=== PATIENT | female | born 1970 | race Two or more races ===

== ENCOUNTER 2023-01-07 21:13 | Inpatient (IN) | payer MEDICARE, OTHER ==
[~2023-01-07] VITALS: Ht 160 cm; Wt 54.4 kg
[2023-01-07 21:30] VITALS: BP 148/96; TEMP 98.7; O2SAT 95
[2023-01-07] MEDS ORDERED: MAGNESIUM HYDROXIDE 30 ML UDC PO PRN (22:00)
[2023-01-07] MEDS ORDERED: BLOOD SUGAR DIAGNOSTIC 1 EACH STRIP IN ONE (22:00)
[2023-01-07] MEDS ORDERED: ZOLPIDEM TARTRATE 5 MG TABLET PO PRN (22:00)
[2023-01-07] MEDS ORDERED: MAG HYDROX/AL HYDROX/SIMETH 30 ML UDC PO PRN (22:00)
[2023-01-07] MEDS ORDERED: ACETAMINOPHEN 325 MG TABLET PO PRN (22:00)
[2023-01-08] MEDS ORDERED: VENL150C2 PO (02:17)
[2023-01-08] MEDS ORDERED: ARIP10TA9 PO (02:17)
[2023-01-08] MEDS ORDERED: LISI10TA29 PO (02:17)
[2023-01-08] MEDS ORDERED: TRAZ-257 PO (02:17)
[2023-01-08] MEDS ORDERED: VENL50TA4 PO (07:54)
[2023-01-08] MEDS ORDERED: ARIP5TAB10 PO (07:54)
[2023-01-08 07:59] LABS: ALBUMIN 2.7 g/dL (3.4-5.0); BILIRUBIN,TOTAL 0.2 mg/dL (0.2-1.0); CALCIUM, SERUM 8.6 mg/dL (8.5-10.1); CREATININE 0.7 mg/dL (0.6-1.3); POTASSIUM 4.2 mmol/L (3.5-5.1); TOTAL PROTEIN, SERUM 6.7 g/dL (6.4-8.2)
[2023-01-08 08:00] VITALS: BP 132/88; TEMP 98.1; O2SAT 96
[2023-01-08 08:01] LABS: CHOLESTEROL 167 mg/dL (<200); HDL CHOLESTEROL 42 mg/dL (40-60); LDL 100 mg/dL (0-99); TRIGLYCERIDES 163 mg/dL (30-150)
[2023-01-08] MEDS: ARIPIPRAZOLE 5 MG TABLET PO SCH (10:28)
[2023-01-08] MEDS: VENLAFAXINE XR 75 MG CAP.SR.24H PO SCH (10:28)
[2023-01-08] MEDS: LORAZEPAM 0.5 MG TABLET PO PRN (12:06)
[2023-01-08] MEDS: NICOTINE PATCH (7MG) 7 MG PATCH.TD24 TD SCH (12:55)
[2023-01-08 16:00] VITALS: BP 131/89; TEMP 98.6; O2SAT 98
[2023-01-08 20:00] VITALS: BP 135/91; TEMP 98.6; O2SAT 96
[2023-01-08] MEDS: TRAZODONE 50 MG TABLET PO SCH (23:13)
[2023-01-09 08:00] VITALS: BP 114/77; TEMP 98.8; O2SAT 96
[2023-01-09] MEDS: NICOTINE PATCH (7MG) 7 MG PATCH.TD24 TD SCH (08:14)
[2023-01-09] MEDS: LISINOPRIL (10MG) 10 MG TABLET PO SCH (08:14)
[2023-01-09] MEDS: VENLAFAXINE XR 75 MG CAP.SR.24H PO SCH (08:14)
[2023-01-09] MEDS: ARIPIPRAZOLE 5 MG TABLET PO SCH (08:15)
[2023-01-09 16:00] VITALS: BP 102/67; TEMP 98.4; O2SAT 97
[2023-01-09] MEDS: LORAZEPAM 0.5 MG TABLET PO PRN (17:03)
[2023-01-09 20:00] VITALS: BP 106/70; TEMP 98.4; O2SAT 96
[2023-01-09] MEDS: TRAZODONE 50 MG TABLET PO SCH (21:17)
[2023-01-10 08:00] VITALS: BP 96/71; TEMP 97.8; O2SAT 97
[2023-01-10] MEDS: NICOTINE PATCH (7MG) 7 MG PATCH.TD24 TD SCH (08:44)
[2023-01-10] MEDS: VENLAFAXINE XR 75 MG CAP.SR.24H PO SCH (08:44)
[2023-01-10] MEDS: ARIPIPRAZOLE 5 MG TABLET PO SCH (08:44)
[2023-01-10] MEDS: LISINOPRIL (10MG) 10 MG TABLET PO SCH (08:45)
[2023-01-10] MEDS: LORAZEPAM 0.5 MG TABLET PO PRN (12:30)
[2023-01-10 16:00] VITALS: BP 113/69; TEMP 98; O2SAT 99
[2023-01-10 20:00] VITALS: BP 97/55; TEMP 97.9; O2SAT 100
[2023-01-10] MEDS: TRAZODONE 50 MG TABLET PO SCH (21:35)
[2023-01-11 08:00] VITALS: BP 106/76; TEMP 98.1; O2SAT 94
[2023-01-11] MEDS: VENLAFAXINE XR 75 MG CAP.SR.24H PO SCH (08:20)
[2023-01-11] MEDS: ARIPIPRAZOLE 5 MG TABLET PO SCH (08:20)
[2023-01-11] MEDS: NICOTINE PATCH (7MG) 7 MG PATCH.TD24 TD SCH (08:20)
[2023-01-11] MEDS: LISINOPRIL (10MG) 10 MG TABLET PO SCH (08:21)
[2023-01-11] MEDS: LORAZEPAM 0.5 MG TABLET PO PRN (09:43)
[2023-01-11 16:00] VITALS: BP 103/69; TEMP 98; O2SAT 98
[2023-01-11 20:00] VITALS: BP 107/65; TEMP 98.4; O2SAT 98
[2023-01-11] MEDS: TRAZODONE 50 MG TABLET PO SCH (22:19)
[2023-01-12] MEDS: LORAZEPAM 0.5 MG TABLET PO PRN ×2 (05:25→14:00)
[2023-01-12 08:00] VITALS: BP 111/76; TEMP 98.4; O2SAT 96
[2023-01-12] MEDS: ARIPIPRAZOLE 5 MG TABLET PO SCH (08:24)
[2023-01-12] MEDS: VENLAFAXINE XR 75 MG CAP.SR.24H PO SCH (08:25)
[2023-01-12] MEDS: LISINOPRIL (10MG) 10 MG TABLET PO SCH (08:25)
[2023-01-12] MEDS: NICOTINE PATCH (7MG) 7 MG PATCH.TD24 TD SCH (08:26)
[2023-01-12 16:00] VITALS: BP 105/62; TEMP 98.6; O2SAT 98
[2023-01-12 20:40] VITALS: BP 100/68; TEMP 98.2; O2SAT 96
[2023-01-12] MEDS: TRAZODONE 50 MG TABLET PO SCH (21:42)
[2023-01-13] MEDS: LORAZEPAM 0.5 MG TABLET PO PRN (06:38)
[2023-01-13 08:00] VITALS: BP 100/67; TEMP 97.9; O2SAT 96
[2023-01-13] MEDS: NICOTINE PATCH (7MG) 7 MG PATCH.TD24 TD SCH (08:32)
[2023-01-13] MEDS: ARIPIPRAZOLE 5 MG TABLET PO SCH (08:32)
[2023-01-13] MEDS: VENLAFAXINE XR 75 MG CAP.SR.24H PO SCH (08:32)
[2023-01-13] MEDS: LISINOPRIL (10MG) 10 MG TABLET PO SCH (08:34)
[2023-01-13 16:00] VITALS: BP 100/62; TEMP 97.7; O2SAT 100
[2023-01-13 20:26] VITALS: BP 100/66; TEMP 98.9; O2SAT 97
[2023-01-13] MEDS: TRAZODONE 50 MG TABLET PO SCH (21:09)
[2023-01-14] MEDS: LORAZEPAM 0.5 MG TABLET PO PRN (05:57)
[2023-01-14 08:00] VITALS: BP 105/70; TEMP 97.2; O2SAT 97
[2023-01-14] MEDS: NICOTINE PATCH (7MG) 7 MG PATCH.TD24 TD SCH (08:04)
[2023-01-14] MEDS: VENLAFAXINE XR 75 MG CAP.SR.24H PO SCH (08:04)
[2023-01-14] MEDS: ARIPIPRAZOLE 5 MG TABLET PO SCH (08:04)
[2023-01-14] MEDS: LISINOPRIL (10MG) 10 MG TABLET PO SCH (08:05)
[2023-01-14 16:00] VITALS: BP 113/77; TEMP 98.6; O2SAT 98
[2023-01-14 20:29] VITALS: BP 105/66; TEMP 98.4; O2SAT 96
[2023-01-14] MEDS: TRAZODONE 50 MG TABLET PO SCH (21:21)
[2023-01-15 08:00] VITALS: BP 99/63; TEMP 98.1; O2SAT 98
[2023-01-15] MEDS: NICOTINE PATCH (7MG) 7 MG PATCH.TD24 TD SCH (08:10)
[2023-01-15] MEDS: LISINOPRIL (10MG) 10 MG TABLET PO SCH (08:10)
[2023-01-15] MEDS: VENLAFAXINE XR 75 MG CAP.SR.24H PO SCH (08:11)
[2023-01-15] MEDS: ARIPIPRAZOLE 5 MG TABLET PO SCH (08:11)
[2023-01-15] MEDS: LORAZEPAM 0.5 MG TABLET PO PRN (15:22)
[2023-01-15 16:00] VITALS: BP 115/79; TEMP 98.4; O2SAT 98
[2023-01-15 20:11] VITALS: BP 114/77; TEMP 98.2; O2SAT 97
[2023-01-15] MEDS: TRAZODONE 50 MG TABLET PO SCH (21:30)
[2023-01-16 07:18] LABS: BASOPHILS # (AUTO) 0.1 K/uL (0.0-0.2); BASOPHILS % (AUTO) 2.6 % (0.0-2.0); EOSINOPHILS # (AUTO) 0.1 K/uL (0.0-0.7); EOSINOPHILS % (AUTO) 1.5 % (0.0-6.0); HEMATOCRIT 33 % (33-45); HEMOGLOBIN 10.9 g/dL (11.5-14.8); LYMPHOCYTES # (AUTO) 1.5 K/uL (0.8-4.8); LYMPHOCYTES % (AUTO) 40.5 % (20.0-44.0); MEAN CORPUSCULAR HEMOGLOBIN 29 PG (26.0-33.0); MEAN CORPUSCULAR HGB CONC 33 g/dl (31.0-36.0); MEAN CORPUSCULAR VOLUME 88 fL (82-100); MONOCYTES # (AUTO) 0.2 K/uL (0.1-1.30); MONOCYTES % (AUTO) 5.3 % (2.0-12.0); NEUTROPHILS # (AUTO) 1.9 K/uL (1.8-8.9); NEUTROPHILS % (AUTO) 50.1 % (43.0-81.0); PLATELET COUNT (AUTO) 439 K/uL (150-450); RED BLOOD CELL COUNT(AUTO) 3.75 MIL/uL (4.0-5.2); RED CELL DISTRIBUTION WIDTH 15.1 % (11.5-15.0); WHITE BLOOD COUNT (AUTO) 3.8 K/uL (4.3-11.0)
[2023-01-16 07:33] LABS: CALCIUM, SERUM 8.7 mg/dL (8.5-10.1); CREATININE 0.7 mg/dL (0.6-1.3); MAGNESIUM 2.2 mg/dL (1.8-2.4); POTASSIUM 4.1 mmol/L (3.5-5.1)
[2023-01-16 08:00] VITALS: BP 100/73; TEMP 98.1; O2SAT 95
[2023-01-16] MEDS: NICOTINE PATCH (7MG) 7 MG PATCH.TD24 TD SCH (08:24)
[2023-01-16] MEDS: ARIPIPRAZOLE 5 MG TABLET PO SCH (08:25)
[2023-01-16] MEDS: VENLAFAXINE XR 75 MG CAP.SR.24H PO SCH (08:25)
[2023-01-16] MEDS: LORAZEPAM 0.5 MG TABLET PO PRN (11:03)
[2023-01-16 16:00] VITALS: BP 106/68; TEMP 97.8; O2SAT 98
[2023-01-16 20:00] VITALS: BP 101/68; TEMP 98.4; O2SAT 97
[2023-01-16] MEDS: TRAZODONE 50 MG TABLET PO SCH (21:27)
[2023-01-17] MEDS: LORAZEPAM 0.5 MG TABLET PO PRN ×2 (06:35→14:28)
[2023-01-17 08:00] VITALS: BP 106/63; TEMP 97.6; O2SAT 98
[2023-01-17] MEDS: NICOTINE PATCH (7MG) 7 MG PATCH.TD24 TD SCH (08:29)
[2023-01-17] MEDS: ARIPIPRAZOLE 5 MG TABLET PO SCH (08:29)
[2023-01-17] MEDS: VENLAFAXINE XR 75 MG CAP.SR.24H PO SCH (08:29)
[2023-01-17 16:00] VITALS: BP 124/77; TEMP 98; O2SAT 97
== END 2023-01-17 16:50 | DRG 885 ==
LOC: GPS 21:13
PROVIDERS: ADMIT Psychiatry & Neurology Psychiatry; ATTEND Student in an Organized Health Care Education/Training Program
DX: F25.1 Schizoaffective disorder, depressive type (principal); E44.0 Moderate protein-calorie malnutrition; R45.851 Suicidal ideations; I10 Essential (primary) hypertension; F15.10 Other stimulant abuse, uncomplicated; F10.20 Alcohol dependence, uncomplicated; T39.012D Poisoning by aspirin, intentional self-harm, subsequent encounter; F43.10 Post-traumatic stress disorder, unspecified; Z59.00 Homelessness unspecified
CPT/HCPCS: 36415; 80048-TC; 80053-TC; 80061-TC; 82962-TC; 83735-TC; 85025-TC; 87081-TC